=== PATIENT | male | born 1965 | race Two or more races ===

== ENCOUNTER 2019-07-31 02:11 | Emergency (ER) | payer SELFPAY ==
[~2019-07-31] VITALS: Ht 154.9 cm; Wt 68.6 kg
[2019-07-31] MEDS ORDERED: ASPI-556 PO (02:25)
[2019-07-31] MEDS ORDERED: IBUP-2070 PO (02:25)
[2019-07-31] MEDS ORDERED: METF-960 PO (02:25)
[2019-07-31] MEDS ORDERED: LISI-661 PO (02:25)
[2019-07-31] MEDS ORDERED: INSLAN SQ (02:25)
[2019-07-31] MEDS ORDERED: GABA-533 PO (02:25)
[2019-07-31 02:32] LABS: GLUCOSE,POINT OF CARE 153 MG/DL (70-110)
[2019-07-31 06:04] VITALS: BP 152/88
[2019-07-31] MEDS ORDERED: DiphenhydrAMINE HCL 50 MG/ML VIAL IM ONE (06:30)
[2019-07-31] MEDS ORDERED: BETAMETHASONE VAL 0.1% 15 GM CREAM TP ONE (06:30)
[2019-07-31] MEDS ORDERED: LISINOPRIL 10 MG TABLET PO ONE (06:30)
== END 2019-07-31 07:04 | disposition home or self-care (01) ==
LOC: EMS 02:14
DX: T78.40XA Allergy, unspecified, initial encounter (principal); E11.9 Type 2 diabetes mellitus without complications; I10 Essential (primary) hypertension; Z79.84 Long term (current) use of oral hypoglycemic drugs; Z79.899 Other long term (current) drug therapy; Z79.82 Long term (current) use of aspirin; X58.XXXA Exposure to other specified factors, initial encounter
CPT/HCPCS: 82962; 96372; 99283; J1200

== ENCOUNTER 2020-03-24 15:16 | Emergency (ER) | payer MEDICAID ==
[~2020-03-24] VITALS: Ht 165.1 cm; Wt 70.5 kg
[~2020-03-24 15:16] MED LIST: ASPI-556 PO; GABA-1201 PO; IBUP-2070 PO; INSLAN SQ; LISI-661 PO; METF-960 PO
[2020-03-24 15:18] VITALS: BP 133/69
[2020-03-24] MEDS ORDERED: OMEP20 PO (15:26)
== END 2020-03-24 16:37 | disposition home or self-care (01) ==
LOC: EMS 15:16
DX: B86 Scabies (principal); I10 Essential (primary) hypertension; Z79.84 Long term (current) use of oral hypoglycemic drugs; Z79.899 Other long term (current) drug therapy

== ENCOUNTER 2021-08-12 17:35 | Emergency (ER) | payer MEDICAID ==
[~2021-08-12] VITALS: Ht 165.1 cm; Wt 77.3 kg
[~2021-08-12 17:35] MED LIST changes: -LISI-661 PO; +LISI-893 PO; +METF-1211 PO; -METF-960 PO; +OMEP20 PO
[2021-08-12] MEDS ORDERED: ACETAMINOPHEN 325 MG TABLET PO ONE (18:45)
[2021-08-12 18:46] LABS: BASOPHILS % (AUTO) 0.2 % (0.0-2.0); EOSINOPHILS % (AUTO) 0 % (1.0-6.0); HEMOGLOBIN 13.3 g/dL (13.5-17.5); LYMPHOCYTES # (AUTO) 0.8 K/uL (1.0-4.8); LYMPHOCYTES % (AUTO) 14.3 % (22.0-44.0); MEAN CORPUSCULAR HEMOGLOBIN 30.1 pg (26.0-34.0); MEAN CORPUSCULAR VOLUME 89 fL (80-100); MONOCYTES # (AUTO) 0.9 K/uL (0.1-1.0); NEUTROPHILS % (AUTO) 69.5 % (40.0-70.0); PLATELET COUNT (AUTO) 185 K/uL (150-450); RED CELL DISTRIBUTION WIDTH 13.7 % (11.5-14.5)
[2021-08-12 18:54] LABS: CALCIUM, TOTAL 8.7 mg/dL (8.8-10.5); CREATININE 1.37 mg/dL (0.60-1.30); POTASSIUM 4.9 mmol/L (3.5-5.1)
[2021-08-12 19:01] LABS: ALBUMIN 3.3 g/dL (3.4-5.0); BILIRUBIN,TOTAL 0.3 mg/dL (0.1-1.0); TOTAL PROTEIN, SERUM 7.6 g/dL (6.4-8.2)
[2021-08-12 19:23] LABS: COVID AG,FIA SOURCE NASAL SWAB
[2021-08-12 19:46] LABS: INFLUENZA TYPE A NEGATIVE FOR TYPE A (NEGATIVE); INFLUENZA TYPE B NEGATIVE FOR TYPE B (NEGATIVE)
[2021-08-12] MEDS ORDERED: IOHEXOL 350 MG/ML 100 ML VIAL ONE (20:59)
[2021-08-12] MEDS ORDERED: SODIUM CHLORIDE 0.9% 100 ML ONE (20:59)
[2021-08-12 22:45] VITALS: BP 112/72
== END 2021-08-12 23:15 | disposition home or self-care (01) ==
LOC: EMS 17:41
DX: U07.1 COVID-19 (principal); R10.32 Left lower quadrant pain; R50.9 Fever, unspecified; E11.9 Type 2 diabetes mellitus without complications; I10 Essential (primary) hypertension; Z79.4 Long term (current) use of insulin; Z79.82 Long term (current) use of aspirin
CPT/HCPCS: 36415; 71045; 74177; 80053; 83690; 83880; 84484; 85025; 87426; 87804; 93005; 99285; J7050; Q9967

== ENCOUNTER 2023-05-03 12:02 | Inpatient (IN) | payer OTHER ==
[~2023-05-03] VITALS: Ht 167.6 cm; Wt 74.1 kg
[~2023-05-03 12:02] MED LIST changes: +ASPI-1444 PO; -ASPI-556 PO; +BUPIVACAINE HCL/PF 0.5% 30 ML VIAL ONE; +BUPIVACAINE LIPOSOME/PF 1.3%-13.3MG/ML SUSPENSION 20 ML VIAL INJ ONE; +CeFAZolin SODIUM 1 GM VIAL IVP ONE; +DEXAMETHASONE SOD PHOS 4 MG/ML VIAL IVP ONE; +EPINEPHrine 1:1,000 [1 MG/ML] VIAL ONE; +ETHYL ALCOHOL 62% ANTISEPTIC NASAL SANITIZER 0.6 ML AMPUL NASAL ONE; +FentaNYL CITRATE PF 100 MCG/2 ML VIAL IVP ONE; +GLYCOPYRROLATE 0.2 MG/ML VIAL IM ONE; +IBUP-1492 PO; -IBUP-2070 PO; +LIDOCAINE/PF 1% 30 ML VIAL ONE; +LIDOCAINE/PF 2% 5 ML SYRINGE IVP ONE; +METOCLOPRAMIDE HCL 5 MG/ML 2 ML VIAL IVP ONE; +MIDAZOLAM HCL 2 MG/2 ML VIAL IVP ONE; +ONDANSETRON HCL 4 MG/2 ML VIAL IVP ONE; +PROPOFOL 1% 20 ML VIAL IVP ONE; +ROCURONIUM BROMIDE 10 MG/ML 5 ML VIAL IVP ONE; +SODIUM CL IRRIG SOLN BAG 3,000 ML IRRIG ONE; +SODIUM CL IRRIG SOLN BAG 6,000 ML IRRIG ONE; +SUGAMMADEX SODIUM 200 MG/2 ML VIAL IVP ONE
[2023-05-03 12:46] LABS: GLUCOMETER DEV NAME(LOC) SDS.; GLUCOSE,POINT OF CARE 72 MG/DL (70-110)
[2023-05-03] MEDS ORDERED: RINGERS SOLUTION,LACTATED 1,000 ML IV ONE ×2 (14:00→16:10)
[2023-05-03] MEDS ORDERED: DEXTROSE 5%-0.45% SODIUM CHL 1,000 ML IV ONE (14:51)
[2023-05-03] MEDS ORDERED: HYDROmorphone HCL 2 MG/ML SYRINGE IVP PRN (15:45)
[2023-05-03] MEDS ORDERED: FentaNYL CITRATE PF 100 MCG/2 ML VIAL IVP PRN (15:45)
[2023-05-03] MEDS ORDERED: DEXTROSE 50%-WATER 25 GM/50 ML SYRINGE IVP PRN (19:15)
[2023-05-03 19:35] VITALS: BP 164/85; PULSE 94; RESP 18; TEMP 97.2
[2023-05-03] MEDS ORDERED: OXYGEN THERAPY IH SCH (20:00)
[2023-05-03] MEDS ORDERED: IBUPROFEN 600 MG TABLET PO PRN (20:00)
[2023-05-03] MEDS: OxyCODONE HCL/ACETAMINOPHEN 5-325 MG TABLET PO PRN ×2 (20:01→23:27)
[2023-05-03] MEDS ORDERED: SODIUM CHLORIDE 0.9% 500 ML IV ONE (20:13)
[2023-05-03] MEDS: CeFAZolin 2 GM/DEXTROSE 50 ML IV SCH (23:27)
[2023-05-03] MEDS: MetFORMIN HCL 500 MG TABLET PO SCH (23:28)
[2023-05-03] MEDS: INSULIN GLARGINE,HUM.REC.ANLOG 100 UNITS/ML SQ SCH (23:34)
[2023-05-04 05:27] VITALS: BP 153/82; PULSE 91; RESP 18; TEMP 98
[2023-05-04 05:36] LABS: GLUCOMETER DEV NAME(LOC) SDS.; GLUCOSE,POINT OF CARE 107 MG/DL (70-110)
[2023-05-04] MEDS: INSULIN LISPRO 100 UNITS/ML SQ PRN ×3 (05:46→20:39)
[2023-05-04] MEDS ORDERED: INFLUENZA VIRUS VACCINE QVS 2023-24 (6MO+)/PF 60 MCG/0.5 ML SYRINGE IM. ONE (07:00)
[2023-05-04] MEDS ORDERED: PNEUMOCOCCAL VACCINE POLYVALENT 0.5 ML SYRINGE [PPSV23] IM. ONE (07:00)
[2023-05-04] MEDS: OxyCODONE HCL/ACETAMINOPHEN 5-325 MG TABLET PO PRN ×2 (08:37→21:09)
[2023-05-04] MEDS: CeFAZolin 2 GM/DEXTROSE 50 ML IV SCH (08:38)
[2023-05-04] MEDS: OMEPRAZOLE 20 MG CAPSULE PO SCH (08:38)
[2023-05-04] MEDS: LISINOPRIL 10 MG TABLET PO SCH (08:38)
[2023-05-04] MEDS: GABAPENTIN 400 MG CAPSULE PO SCH (08:38)
[2023-05-04] MEDS: ASPIRIN 81 MG CHEWABLE TABLET PO SCH (08:38)
[2023-05-04 09:44] VITALS: BP 122/72; PULSE 90; RESP 18; TEMP 98.3
[2023-05-04 11:31] LABS: GLUCOMETER DEV NAME(LOC) 6N.2B; GLUCOSE,POINT OF CARE 202 MG/DL (70-110)
[2023-05-04 11:31] LABS: GLUCOMETER DEV NAME(LOC) 6N.2B; GLUCOSE,POINT OF CARE 98 MG/DL (70-110)
[2023-05-04 17:57] LABS: BASOPHILS % (AUTO) 0.5 % (0.0-2.0); EOSINOPHILS % (AUTO) 1.4 % (1.0-6.0); HEMATOCRIT 36.4 % (41-53); HEMOGLOBIN 12.1 g/dL (13.5-17.5); LYMPHOCYTES # (AUTO) 2.9 K/uL (1.0-4.8); MEAN CORPUSCULAR HEMOGLOBIN 30.4 pg (26.0-34.0); MEAN CORPUSCULAR HGB CONC 33.1 G/dL (31.0-37.0); MEAN CORPUSCULAR VOLUME 92 fL (80-100); MONOCYTES % (AUTO) 11.2 % (2.0-9.0); NEUTROPHILS # (AUTO) 4.8 K/uL (1.8-7.7); NEUTROPHILS % (AUTO) 53.9 % (40.0-70.0); PLATELET COUNT (AUTO) 255 K/uL (150-450); RED BLOOD CELL COUNT(AUTO) 3.97 MIL/uL (4.50-5.90); RED CELL DISTRIBUTION WIDTH 14.8 % (11.5-14.5); WHITE BLOOD COUNT (AUTO) 8.8 K/uL (4.5-11.0)
[2023-05-04 18:07] LABS: GLUCOMETER DEV NAME(LOC) 6N.1B; GLUCOSE,POINT OF CARE 158 MG/DL (70-110)
[2023-05-04 18:13] LABS: CALCIUM, TOTAL 8.1 mg/dL (8.8-10.5); CREATININE 1.51 mg/dL (0.60-1.30); POTASSIUM 4.6 mmol/L (3.5-5.1)
[2023-05-04 18:18] LABS: BILIRUBIN,TOTAL 0.2 mg/dL (0.1-1.0); TOTAL PROTEIN, SERUM 7.6 g/dL (6.4-8.2)
[2023-05-04 18:27] LABS: ALBUMIN 3.5 g/dL (3.4-5.0)
[2023-05-04 20:18] VITALS: BP 114/78; PULSE 87; RESP 20; TEMP 98.4
[2023-05-04] MEDS: INSULIN GLARGINE,HUM.REC.ANLOG 100 UNITS/ML SQ SCH (20:38)
[2023-05-04] MEDS: MetFORMIN HCL 500 MG TABLET PO SCH (21:00)
[2023-05-05 04:02] VITALS: BP 131/78; PULSE 80; RESP 18; TEMP 98
[2023-05-05] MEDS: OxyCODONE HCL/ACETAMINOPHEN 5-325 MG TABLET PO PRN ×2 (05:43→17:55)
[2023-05-05 06:56] LABS: GLUCOMETER DEV NAME(LOC) 6N.2B; GLUCOSE,POINT OF CARE 188 MG/DL (70-110)
[2023-05-05 06:56] LABS: GLUCOMETER DEV NAME(LOC) 6N.2B; GLUCOSE,POINT OF CARE 136 MG/DL (70-110)
[2023-05-05 08:04] VITALS: BP 130/76; PULSE 82; RESP 18; TEMP 98.4
[2023-05-05] MEDS: LISINOPRIL 10 MG TABLET PO SCH (08:29)
[2023-05-05] MEDS: HEPARIN SODIUM,PORCINE 5,000 UNITS/ML VIAL SQ SCH ×3 (08:30→15:38)
[2023-05-05] MEDS: ASPIRIN 81 MG CHEWABLE TABLET PO SCH (08:30)
[2023-05-05] MEDS: GABAPENTIN 400 MG CAPSULE PO SCH (08:30)
[2023-05-05] MEDS: OMEPRAZOLE 20 MG CAPSULE PO SCH (08:30)
[2023-05-05] MEDS: OxyCODONE HCL/ACETAMINOPHEN 10-325 MG TABLET PO PRN ×2 (08:50→20:19)
[2023-05-05 11:16] LABS: GLUCOMETER DEV NAME(LOC) 6S.2; GLUCOSE,POINT OF CARE 79 MG/DL (70-110)
[2023-05-05 12:40] LABS: GLUCOMETER DEV NAME(LOC) 6S.2; GLUCOSE,POINT OF CARE 80 MG/DL (70-110)
[2023-05-05] MEDS ORDERED: PERCT PO (14:19)
[2023-05-05] MEDS ORDERED: DOCU-119 PO (14:19)
[2023-05-05] MEDS ORDERED: ASPI81 PO (14:19)
[2023-05-05 15:27] VITALS: BP 128/78; PULSE 84; RESP 18; TEMP 98
[2023-05-05 19:54] VITALS: BP 130/84; PULSE 95; RESP 18; TEMP 98.8
[2023-05-05] MEDS: MetFORMIN HCL 500 MG TABLET PO SCH (21:00)
[2023-05-05] MEDS: INSULIN GLARGINE,HUM.REC.ANLOG 100 UNITS/ML SQ SCH (21:25)
[2023-05-05] MEDS: INSULIN LISPRO 100 UNITS/ML SQ PRN (21:26)
[2023-05-06] MEDS: HEPARIN SODIUM,PORCINE 5,000 UNITS/ML VIAL SQ SCH ×2 (01:17→08:24)
[2023-05-06 04:29] VITALS: BP 124/80; PULSE 76; RESP 18; TEMP 97.9
[2023-05-06] MEDS: OxyCODONE HCL/ACETAMINOPHEN 10-325 MG TABLET PO PRN (04:34)
[2023-05-06 05:41] LABS: GLUCOMETER DEV NAME(LOC) 6N.2B; GLUCOSE,POINT OF CARE 175 MG/DL (70-110)
[2023-05-06 08:18] VITALS: BP 131/78; PULSE 75; RESP 20; TEMP 98
[2023-05-06] MEDS: OMEPRAZOLE 20 MG CAPSULE PO SCH (08:25)
[2023-05-06] MEDS: ASPIRIN 81 MG CHEWABLE TABLET PO SCH (08:25)
[2023-05-06] MEDS: GABAPENTIN 400 MG CAPSULE PO SCH (08:25)
[2023-05-06] MEDS: LISINOPRIL 10 MG TABLET PO SCH (08:26)
[2023-05-06 11:31] LABS: GLUCOMETER DEV NAME(LOC) 6N.2B; GLUCOSE,POINT OF CARE 75 MG/DL (70-110)
[2023-05-06 11:31] LABS: GLUCOMETER DEV NAME(LOC) 6N.1B; GLUCOSE,POINT OF CARE 122 MG/DL (70-110)
[2023-05-06 15:01] LABS: GLUCOMETER DEV NAME(LOC) 6S.2; GLUCOSE,POINT OF CARE 98 MG/DL (70-110)
== END 2023-05-06 15:20 | disposition home or self-care (01) | DRG 983 ==
LOC: SURGERY 12:02 → 6S 18:54
PROVIDERS: ADMIT Orthopaedic Surgery; ATTEND Orthopaedic Surgery
PROC: 0QB44ZZ Excision of Right Acetabulum, Percutaneous Endoscopic Approach (ICD-10-PCS; 2023-05-03)
PROC: 0SQ94ZZ Repair Right Hip Joint, Percutaneous Endoscopic Approach (ICD-10-PCS; principal; 2023-05-03 14:00)
DX: S71.011A Laceration without foreign body, right hip, initial encounter (principal); M25.551 Pain in right hip; X58.XXXA Exposure to other specified factors, initial encounter; I10 Essential (primary) hypertension; E11.9 Type 2 diabetes mellitus without complications; E78.5 Hyperlipidemia, unspecified; Y93.89 Activity, other specified; Y92.89 Other specified places as the place of occurrence of the external cause; Y99.8 Other external cause status; Z79.82 Long term (current) use of aspirin; Z79.84 Long term (current) use of oral hypoglycemic drugs; Z79.899 Other long term (current) drug therapy; Z79.4 Long term (current) use of insulin; Z90.49 Acquired absence of other specified parts of digestive tract; Z88.8 Allergy status to other drugs, medicaments and biological substances
CPT/HCPCS: 80053; 82962; 85025; 87081; 90686; 90732; 93005; 97110; 97116; 97163; 97530; C9290; J0171; J0690; J1100; J1644; J1815; J2250; J2405; J2704; J2765; J3010; J3490; J7040; J7120; Q9967

== ENCOUNTER 2024-01-21 15:52 | Emergency (ER) | payer MEDICAID, OTHER ==
[~2024-01-21] VITALS: Ht 165.1 cm; Wt 75.9 kg
[~2024-01-21 15:52] MED LIST changes: -ASPI-1444 PO; +ASPI81 PO; -BUPIVACAINE HCL/PF 0.5% 30 ML VIAL ONE; -BUPIVACAINE LIPOSOME/PF 1.3%-13.3MG/ML SUSPENSION 20 ML VIAL INJ ONE; -CeFAZolin SODIUM 1 GM VIAL IVP ONE; -DEXAMETHASONE SOD PHOS 4 MG/ML VIAL IVP ONE; +DOCU-119 PO; -EPINEPHrine 1:1,000 [1 MG/ML] VIAL ONE; -ETHYL ALCOHOL 62% ANTISEPTIC NASAL SANITIZER 0.6 ML AMPUL NASAL ONE; -FentaNYL CITRATE PF 100 MCG/2 ML VIAL IVP ONE; -GLYCOPYRROLATE 0.2 MG/ML VIAL IM ONE; -LIDOCAINE/PF 1% 30 ML VIAL ONE; -LIDOCAINE/PF 2% 5 ML SYRINGE IVP ONE; -METOCLOPRAMIDE HCL 5 MG/ML 2 ML VIAL IVP ONE; -MIDAZOLAM HCL 2 MG/2 ML VIAL IVP ONE; -ONDANSETRON HCL 4 MG/2 ML VIAL IVP ONE; +PERCT PO; -PROPOFOL 1% 20 ML VIAL IVP ONE; -ROCURONIUM BROMIDE 10 MG/ML 5 ML VIAL IVP ONE; -SODIUM CL IRRIG SOLN BAG 3,000 ML IRRIG ONE; -SODIUM CL IRRIG SOLN BAG 6,000 ML IRRIG ONE; -SUGAMMADEX SODIUM 200 MG/2 ML VIAL IVP ONE
[2024-01-21 16:03] VITALS: BP 143/84; PULSE 98; RESP 14; TEMP 98.4
[2024-01-21 16:20] LABS: GLUCOMETER DEV NAME(LOC) ER.7; GLUCOSE,POINT OF CARE 192 MG/DL (70-110)
[2024-01-21] MEDS ORDERED: IBUP-1492 PO (19:11)
[2024-01-21] MEDS: KETOROLAC TROMETHAMINE 30 MG/ML VIAL IM ONE (19:15)
== END 2024-01-21 22:32 | disposition home or self-care (01) ==
LOC: EMS 15:52
DX: M25.512 Pain in left shoulder (principal); E11.9 Type 2 diabetes mellitus without complications; I10 Essential (primary) hypertension; Z88.8 Allergy status to other drugs, medicaments and biological substances; Z79.4 Long term (current) use of insulin
CPT/HCPCS: 99283; 82962; 73030; 96372; J1885